=== PATIENT | female | born 1955 | race American Indian/Alaskan Native ===

== ENCOUNTER 2021-02-18 19:02 | Inpatient (IN) | payer SELFPAY ==
[2021-02-18] MEDS ORDERED: dexAMETHasone 4 MG/ML VIAL IV ONE (19:32)
[2021-02-18] MEDS ORDERED: cefTRIAXone/NS 1 GM/50 ML 1 GM/50 ML BAG IV ONE (19:59)
[2021-02-18] MEDS ORDERED: AZITHROMYCIN/NS 500 MG/250 ML 500 MG/250 ML BAG IV ONE (19:59)
--- NOTE | 2021-02-18 19:59 | Emergency Department Report ---
ED Shortness of Breath HPI - General Chief Complaint: Dyspnea/Respdistress Stated Complaint: HYPOXIA/TACHYCARDIA Time Seen by Provider: 02/18/21 19:43 Source: patient, EMS Mode of arrival: Stretcher Limitations: No Limitations - History of Present Illness Initial Comments: Chief complaint shortness of breath low oxygen saturation HPI: This is a 65-year-old female with history of hypertension who was diagnosed with COVID-19 8 days ago. She fell 2 hours ago. She was unable to get up. Family came to check up on. Family member called 9 1. Oxygen saturation 40-50% on room air. Oxygen saturation 90% on 15 L. Patient is not vaccinated against COVID-19. MD Complaint: shortness of breath, cough -: Gradual, days(s) (Diagnosed with COVID-19 8 days ago) Severity: severe Consistency: constant Improves With: nothing Worsens With: nothing Known History Of: other (Recently diagnosed with COVID-19 infection) Context: other (Recent diagnosis COVID-19) Associated Symptoms: cough - Related Data Allergies Allergy/AdvReac Type Severity Reaction Status Date / Time No Known Allergies Allergy Unverified 02/18/21 20:00 ED Review of Systems ROS: Stated complaint: HYPOXIA/TACHYCARDIA Other details as noted in HPI Comment: Unobtainable due to pts medical conditions (Unable to obtain due to critical status severe work of breathing) ED Past Medical Hx - Past Medical History Previous Medical History?: Yes Hx Hypertension: Yes Additional medical history: COVID-23 Feb 2021 - Surgical History Past Surgical History?: No - Social History Smoking Status: Never Smoker Substance Use Type: None ED Physical Exam - General Limitations: No Limitations General appearance: alert, anxious, in distress, other (Tearful severe work of breathing) - Head Head exam: Present: atraumatic, normocephalic - Eye Eye exam: Present: normal appearance - ENT ENT exam: Present: mucous membranes moist - Neck Neck exam: Present: normal inspection, full ROM - Respiratory Respiratory exam: Present: rales, rhonchi, accessory muscle use. Absent: respiratory distress, chest wall tenderness - Cardiovascular Cardiovascular Exam: Present: normal rhythm, tachycardia, normal heart sounds. Absent: systolic murmur, diastolic murmur, rubs, gallop - GI/Abdominal GI/Abdominal exam: Present: soft, normal bowel sounds. Absent: distended, tenderness, guarding, rebound - Extremities Exam Extremities exam: Present: normal inspection - Neurological Exam Neurological exam: Present: alert, oriented X3 - Psychiatric Psychiatric exam: Present: normal mood, anxious - Skin Skin exam: Present: warm, dry, intact, normal color. Absent: rash ED Course Vital Signs 02/18/21 02/18/21 02/18/21 19:20 19:31 19:57 Temperature 100.6 F H Pulse Rate 121 H 117 H Respiratory 43 H 43 H 33 H Rate Blood Pressure 137/104 Blood Pressure 107/82 [Right] O2 Sat by Pulse 75 L 75 L 93 Oximetry ED Medical Decision Making - Lab Data Result diagrams: 02/18/21 19:56 02/18/21 19:56 - EKG Data -: EKG Interpreted by Me EKG shows normal: sinus rhythm, axis Rate: tachycardia - EKG Data 02/18/21 20:20 EKG obtained 2006 EKG inter by me Sinus tachycardia rate 115 bpm normal axis normal QTC no ST elevation ossific T wave pattern - Radiology Data Radiology results: report reviewed Patient Name: ENEIDA GRIGGS Gender: Female Date of : 1955 Referring Provider: ISMA DEVINE Organization: [facility] Accession Number: [id number] Requested Date: February 18, 2021 19:31 Report Status: Final Requested Procedure: 1 Procedure Description: XR chest 1V ap Modality: XR Findings Reporting MD: Brady Carter Dictation Time: February 18, 2021 19:20 Grommet Machine Operator: Not available Recreation Coordinator Date: CHEST 1 VIEW INDICATION: Dyspnea. COMPARISON: None FINDINGS: Support devices: None. Heart: Within normal limits. Lungs/Pleura: The lungs are generally clear. Mild hazy opacity is present in the lower lung zones which could represent mild atelectatic changes. Otherwise the lungs are clear. No pleural effusion or pneumothorax. Additional findings: None. IMPRESSION: Mild bibasilar opacities most likely representing atelectatic changes. Signer Name: Brady Carter Jr, MD Signed: 02/18/2021 7:20 PM Workstation Name: [email or web address] - Medical Decision Making Acute respiratory failure hypoxia multifocal pneumonia recent diagnosis of COVID-19, sepsis presumed secondary bacterial infection, requiring noninvasive positive pressure ventilation FiO2 60% will titrate down according to the PaO2. Work-up notable for Troponin 0.0 82P BNP 2934 white count 28,000 and will need anticoagulation for presumed VTE, suspected pulmonary embolism in the setting. Antibiotics ceftriaxone azithromycin ordered to cover community-acquired pneum onia sepsis admitted in fair condition to IMCU Critical Care Time: Yes Critical care time in (mins) excluding proc time.: 40 Critical care attestation.: If time is entered above; I have spent that time in minutes in the direct care of this critically ill patient, excluding procedure time. 40 minutes of critical care time excluding procedures were used in the care of the patient. I came immediately to the bedside upon patient's arrival. I discussed treatment plan with the nursing team members. I reviewed electronic r ecord. Patient required multiple interventions and reassessments. ED Disposition Clinical Impression: Acute respiratory failure with hypoxia, Sepsis, Multifocal pneumonia, Suspected pulmonary embolism, Acute kidney injury Disposition: ADMITTED INPATIENT Is pt being admited?: Yes Does the pt Need Aspirin: No Condition: Fair Instructions: Bacterial Pneumonia (ED) Referrals: PRIMARY CARE, [Primary Care Provider] - 3-5 Days
--- NOTE | 2021-02-18 20:24 | XRay Report ---
CHEST 1 VIEW INDICATION: Dyspnea. COMPARISON: None FINDINGS: Support devices: None. Heart: Within normal limits. Lungs/Pleura: The lungs are generally clear. Mild hazy opacity is present in the lower lung zones whi ch could represent mild atelectatic changes. Otherwise the lungs are clear. No pleural effusion or pn eumothorax. Additional findings: None. IMPRESSION: Mild bibasilar opacities most likely representing atelectatic changes. Signer Name: Brady Carter Jr, MD Signed: 02/18/2021 8:20 PM Workstation Name: [id number]
[2021-02-18 20:45] LABS: Mean Corpuscular HGB Conc 30 % (30-34); Mean Corpuscular Volume 87 fl (79-97); Red Blood Count 5.18 M/mm3 (3.65-5.03)
[2021-02-18 20:50] LABS: Hematocrit 44.9 % (30.3-42.9); Hemoglobin 13.5 gm/dl (10.1-14.3); Platelet Count 236 K/mm3 (140-440)
[2021-02-18 20:55] LABS: INR 1.29 (0.87-1.13)
[2021-02-18 20:56] LABS: Partial Thromboplastin Time 31.7 Sec. (24.2-36.6)
[2021-02-18 21:01] LABS: Calcium 8.7 mg/dL (8.4-10.2)
[2021-02-18] MEDS ORDERED: SODIUM CHLORIDE 0.9% 1000 ML 1,000 ML IV ONE (21:51)
[2021-02-18] MEDS ORDERED: ACETAMINOPHEN 325 MG TAB PO PRN (22:14)
[2021-02-18] MEDS ORDERED: MORPHINE 2 MG/1 ML INJ IV PRN (22:14)
[2021-02-18] MEDS ORDERED: ALBUTEROL 2.5 MG/3 ML NEBU IH PRN (22:14)
[2021-02-18] MEDS ORDERED: ONDANSETRON 4 MG/2 ML INJ IV PRN (22:14)
[2021-02-18] MEDS ORDERED: HYDROmorphone 1 MG/1 ML INJ IV PRN (22:14)
[2021-02-18 22:20] LABS: ABG Base Excess 1.8 mmol/L (-2.0-3.0); ABG HCO3 23.8 mmol/L (20.0-26.0); ABG Methemoglobin 0.4 % (0.0-1.5); ABG Oxygen Saturation 94.8 % (95.0-99.0); ABG PCO2 29.8 mm Hg; ABG PH 7.521 pH Units (7.350-7.450); ABG PO2 65.7 mm Hg (80.0-90.0)
--- NOTE | 2021-02-18 22:22 | History and Physical Report ---
History of Present Illness Date of examination: 02/18/21 Date of admission: 02/18/21 21:52 Chief complaint: Dyspnea Respiratory distress History of present illness: 65-year-old female with history of hypertension who was diagnosed with COVID-19 8 days ago was brought to the emergency room because of progressive shortness of breath and low oxygen saturation. Patient fell 2 hours ago. Patient was unable to get up. Family came to check up on. Family member called 9 1. Oxygen saturation 40-50% on room air. Oxygen saturation 90% on 15 L. Patient is not vaccinated against COVID-19. In the emergency room patient is found to have lactic acid of 8.70, WBC 28,000 BNP of 2934, troponin 0 0.082. Chest x-ray shows mild bibasilar opacities most likely representing atelectatic changes. So going to put the patient on BiPAP and admit the patient to the IMCU we will consult infectious disease as well as pulmonary for evaluation of respiratory failure coughing 19 Past History Past Medical History: hypertension Medications and Allergies Allergies Allergy/AdvReac Type Severity Reaction Status Date / Time No Known Allergies Allergy Unverified 02/18/21 20:00 Active Meds: Active Medications Acetaminophen (Acetaminophen 325 Mg Tab) 650 mg PO Q4H PRN PRN Reason: Pain MILD(1-3)/Fever >100.5/HOWELL Albuterol (Albuterol 2.5 Mg/3 Ml Nebu) 2.5 mg IH Q4HRT PRN PRN Reason: Shortness Of Breath Albuterol/Ipratropium (Ipratropium/Albuterol Sulfate 3 Ml Ampul.Neb) 1 ampul IH Q6HRT ASHLEY Famotidine (Famotidine 20 Mg Tab) 20 mg PO BID ASHLEY Heparin Sodium (Porcine) (Heparin 5,000 Unit/1 Ml Vial) 5,000 unit SUB-Q Q8HR ASHLEY Hydromorphone HCl (Hydromorphone 1 Mg/1 Ml Inj) 0.5 mg IV Q3H PRN PRN Reason: Pain , Severe (7-10) Sodium Chloride (Nacl 0.9% 1000 Ml) 1,000 mls @ 999 mls/hr IV BOLUS ONE Stop: 02/18/21 22:51 Ceftriaxone Sodium (Rocephin/Ns 2 Gm/100 Ml) 2 gm in 100 mls @ 200 mls/hr IV Q24H ASHLEY; Protocol Azithromycin (Zithromax/Ns) 500 mg in 250 mls @ 250 mls/hr IV Q24H ASHLEY; Protocol Morphine Sulfate (Morphine 2 Mg/1 Ml Inj) 2 mg IV Q4H PRN PRN Reason: Pain, Moderate (4-6) Ondansetron HCl (Ondansetron 4 Mg/2 Ml Inj) 4 mg IV Q8H PRN PRN Reason: Nausea And Vomiting Sodium Chloride (Sodium Chloride 0.9% 10 Ml Flush Syringe) 10 ml IV BID ASHLEY Sodium Chloride (Sodium Chloride 0.9% 10 Ml Flush Syringe) 10 ml IV PRN PRN PRN Reason: LINE FLUSH Review of Systems All systems: negative Constitutional: lethargy Cardiovascular: shortness of breath, dyspnea on exertion Respiratory: cough, shortness of breath, dyspnea on exertion Neurological: change in mentation Exam - Constitutional Vitals: Temp Pulse Resp BP Pulse Ox 100.6 F H 117 H 33 H 137/104 93 02/18/21 19:20 02/18/21 19:57 02/18/21 19:57 02/18/21 19:57 02/18/21 19:57 General appearance: Present: severe distress - EENT Eyes: Present: PERRL ENT: hearing intact, clear oral mucosa - Neck Neck: Present: supple, normal ROM - Respiratory Respiratory effort: normal Respiratory: bilateral: diminished - Cardiovascular Heart Sounds: Present: S1 & S2. Absent: rub, click - Extremities Extremities: pulses symmetrical, No edema Peripheral Pulses: within normal limits - Abdominal General gastrointestinal: Present: soft, non-tender, non-distended, normal bowel sounds Female genitourinary: Present: normal - Integumentary Integumentary: Present: clear, warm, dry - Musculoskeletal Musculoskeletal: gait normal, strength equal bilaterally - Psychiatric Psychiatric: other (Patient is lethargic) - Neurologic Neurologic: CNII-XII intact, moves all extremities, other (Patient is lethargic) HEART Score - HEART Score Troponin: Troponin T 0.082 ng/mL (0.00-0.029) H 02/18/21 19:56 Results - Labs CBC & Chem 7: 02/18/21 19:56 02/18/21 19:56 Labs: Laboratory Last Values WBC 23.6 K/mm3 (4.5-11.0) H 02/18/21 19:56 RBC 5.18 M/mm3 (3.65-5.03) H 02/18/21 19:56 Hgb 13.5 gm/dl (10.1-14.3) 02/18/21 19:56 Hct 44.9 % (30.3-42.9) H 02/18/21 19:56 MCV 87 fl (79-97) 02/18/21 19:56 MCH 26 pg (28-32) L 02/18/21 19:56 MCHC 30 % (30-34) 02/18/21 19:56 RDW 14.0 % (13.2-15.2) 02/18/21 19:56 Plt Count 236 K/mm3 (140-440) 02/18/21 19:56 PT 17.4 Sec. (12.2-14.9) H 02/18/21 19:56 INR 1.29 (0.87-1.13) H 02/18/21 19:56 APTT 31.7 Sec. (24.2-36.6) 02/18/21 19:56 Sodium 144 mmol/L (137-145) 02/18/21 19:56 Potassium 3.8 mmol/L (3.6-5.0) 02/18/21 19:56 Chloride 99.5 mmol/L (98-107) 02/18/21 19:56 Carbon Dioxide 16 mmol/L (22-30) L 02/18/21 19:56 Anion Gap 32 mmol/L 02/18/21 19:56 BUN 34 mg/dL (7-17) H 02/18/21 19:56 Creatinine 1.3 mg/dL (0.6-1.2) H 02/18/21 19:56 Estimated GFR 50 ml/min 02/18/21 19:56 BUN/Creatinine Ratio 26 % 02/18/21 19:56 Glucose 184 mg/dL (65-100) H 02/18/21 19:56 Lactic Acid 8.70 mmol/L (0.7-2.0) H* 02/18/21 19:56 Calcium 8.7 mg/dL (8.4-10.2) 02/18/21 19:56 Magnesium 3.30 mg/dL (1.7-2.3) H 02/18/21 19:56 Total Bilirubin 0.70 mg/dL (0.1-1.2) 02/18/21 19:56 AST 71 units/L (5-40) H 02/18/21 19:56 ALT 40 units/L (7-56) 02/18/21 19:56 Alkaline Phosphatase 120 units/L (35-129) 02/18/21 19:56 Total Creatine Kinase Cancelled 02/18/21 19:56 CK-MB (CK-2) Cancelled 02/18/21 19:56 CK-MB (CK-2) Rel Index Cancelled 02/18/21 19:56 Troponin T 0.082 ng/mL (0.00-0.029) H 02/18/21 19:56 NT-Pro-B Natriuret Pep 2934 pg/mL (0-900) H 02/18/21 19:56 Total Protein 8.0 g/dL (6.3-8.2) 02/18/21 19:56 Albumin 3.0 g/dL (3.9-5) L 02/18/21 19:56 Albumin/Globulin Ratio 0.6 % 02/18/21 19:56 - Imaging and Cardiology Chest x-ray: report reviewed Assessment and Plan VTE prophylaxis?: Chemical Plan of care discussed with patient/family: Yes - Patient Problems (1) Acute respiratory failure with hypoxia Current Visit: Yes Status: Acute Plan to address problem: Admit the patient to the IMCU. Patient is on BiPAP. DuoNeb by nebulizer every 4 hours. Albuterol via nebulizer every 4 hours as needed. Rocephin 2 g IV daily. Zithromax 500 IV daily. Ash dexamethasone 6 mg IV daily we will do the blood culture sputum culture. Will consult infectious disease as well as pulmonary for evaluation. Recheck ABG in the morning (2) COVID-19 Current Visit: Yes Status: Acute Plan to address problem: Patient recently diagnosed with COVID-19. Follow Covid inflammatory marker. Patient is on BiPAP. DuoNeb by nebulizer every 4 hours. Albuterol via nebulizer every 4 hours as needed. Rocephin 2 g IV daily. Zithromax 500 IV daily. Ash dexamethasone 6 mg IV daily we will do the blood culture sputum culture. Will consult infectious disease as well as pulmonary for evaluation. (3) Hypertension Current Visit: Yes Status: Acute Plan to address problem: Hydralazine 10 mg IV every 6 hours as needed. We continue the home medication. We will monitor the blood pressure closely (4) Sepsis Current Visit: Yes Status: Acute Plan to address problem: Rocephin 2 g IV daily. Zithromax 5 mg IV daily. We will do the blood culture and sputum culture. We will recheck the lactic acid in 4 hours. We will consult infectious disease for evaluation. Recheck CBC in the morning (5) Multifocal pneumonia Current Visit: Yes Status: Acute Plan to address problem: Patient is on BiPAP. DuoNeb by nebulizer every 4 hours. Albuterol via nebulizer every 4 hours as needed. Rocephin 2 g IV daily. Zithromax 500 IV daily. Ash dexamethasone 6 mg IV daily we will do the blood culture sputum culture. Will consult infectious disease as well as pulmonary for evaluation. Recheck ABG in the morning (6) CHF (congestive heart failure) Current Visit: Yes Status: Acute Plan to address problem: Patient is on BiPAP. DuoNeb per nebulizer every 4 hours. Fluid restriction. Lasix 40 mg IV daily. Echocardiogram. Consult cardiology if needed (7) DVT prophylaxis Current Visit: Yes Status: Acute Plan to address problem: Heparin 5000 units subcu every 8 hours for DVT prophylaxis. Pepcid 20 mg p.o. twice daily for GI prophylaxis. Patient is a full code
[2021-02-18 22:25] LABS: Total Cells Counted 100
[2021-02-18] MEDS ORDERED: hydrALAZINE 20 MG/1 ML INJ IV PRN (22:27)
[2021-02-18 22:29] LABS: Large Platelets Few; Platelet Estimate Consistent w Auto; RBC Morphology Normal
[2021-02-18] MEDS ORDERED: SODIUM CHLORIDE 0.9% 500 ML 500 ML ONE (23:13)
[2021-02-18] MEDS ORDERED: SODIUM CHLORIDE 0.9% 1000 ML IV SOLN IV STA (23:53)
[2021-02-19] MEDS ORDERED: IPRATROPIUM/ALBUTEROL SULFATE 3 ML AMPUL.NEB IH SCH (02:00)
[2021-02-19 02:13] LABS: Chol/HDL Ratio 4.29 %
[2021-02-19] MEDS ORDERED: IPRATROPIUM/ALBUTEROL SULFATE 3 ML AMPUL.NEB IH ONE (04:56)
[2021-02-19] MEDS ORDERED: ALBUTEROL 8.5 GM MDI INHALATION IH PRN (05:13)
[2021-02-19] MEDS ORDERED: NORepinephrine/NS 8 MG-250 ML 8 MG/250 ML INFUS..BTL IV ONE (05:46)
--- NOTE | 2021-02-19 05:49 | Procedure Note ---
Date of procedure: 02/19/21 - Intubation Time Out Performed: Yes Sedative: Etomidate Mg Given: 20 Paralytic: Succinylcholine Mg Given: 100 Laryngoscope: fiberoptic video scope Size: 3 ET Tube Size: 7.5 Tube Secured Depth (cm): 22 Tube Secured Location: lips Tube Placement Confirmation: visualized tube passing t, equal breath sounds bilat, no breath sounds over epi, confirmation by capnometr Patient Tolerated Procedure: well Intubation Complications: none Additional Comments: Patient found altered and hypoxic. Patient bagged and prepped for intubation. While being prepped for intubation patient became pulseless and CPR initiated. Patient did receive etomidate 20 mg, succinylcholine 100 mg, and was subsequently intubated without difficulty using a glide a scope. Dr. Yoder hospitalist at the bedside continuing resuscitation efforts cxr ordered.
[2021-02-19] MEDS ORDERED: HEPARIN 5,000 UNIT/1 ML VIAL SUB-Q SCH (06:00)
[2021-02-19 06:25] VITALS: BP 253/202
--- NOTE | 2021-02-19 06:36 | Death Note ---
Note Date of : 02/19/21 Time of : 06:06 Time Pronounced: 06:06 - Preliminary Cause of (problem) (1) Acute respiratory failure with hypoxia Preliminary cause of CODE BLUE was called. Patient developed respiratory failure subsequently patient was intubated patient was found PEA subsequently CPR was given as per ACLS protocol. 5 EAP , 2 bicarb 1 atropine 1 calcium gluconate and 300 mg of amiodarone was given also patient was given 1 shock because of V. tach V. fib. But patient failed to regain ROSC patient at 6:06 AM on 02/19/2021 due to cardiopulmonary arrest. Acute respiratory failure.covid 19 infection, sepsi s. Prognosis was poor. Family was informed. (2) COVID-19 Preliminary cause of (3) Hypertension Preliminary cause of (4) Sepsis Preliminary cause of (5) Multifocal pneumonia Preliminary cause of (6) CHF (congestive heart failure) Preliminary cause of (7) DVT prophylaxis Preliminary cause of
[2021-02-19] MEDS ORDERED: NORepinephrine/NS 8 MG-250 ML 8 MG/250 ML INFUS..BTL IV SCH (08:00)
[2021-02-19] MEDS ORDERED: FUROSEMIDE 40 MG/4 ML INJ IV SCH (10:00)
[2021-02-19] MEDS ORDERED: FAMOTIDINE 20 MG TAB PO SCH (10:00)
--- NOTE | 2021-02-19 12:25 | Electrocardiograph Report ---
[facility] Test Date: 2021-02-18 Test Time: 20:07:31 Pat Name: ENEIDA GRIGGS Department: Room: [place] [address] Gender: F Commissary Worker: Rosalia PARKER : 1955 Requested By: ISMA DEVINE Order Number: [id number] Reading MD: Clovis Schmidt Measurements Intervals [place] Rate: 116 P: 66 ID: [id number] QRS: 5 QRSD: 85 T: 10 QT: 375 QTc: 520 Interpretive Statements Sinus tachycardia Prolonged QT interval No previous ECG available for comparison Electronically Signed On 02-19-2021 12:25:05 EST by Clovis Schmidt
[2021-02-19] MEDS ORDERED: AZITHROMYCIN/NS 500 MG/250 ML 500 MG/250 ML BAG IV SCH (23:00)
[2021-02-19] MEDS ORDERED: cefTRIAXone/NS 2 GM/100 ML 2 GM/100 ML BAG IV SCH (23:00)
== END 2021-02-19 06:10 | DRG 871 ==
LOC: ED 19:02 → IMCU 21:52
PROVIDERS: ADMIT Hospitalist; ATTEND Hospitalist
PROC: 5A09357 Assistance with Respiratory Ventilation, Less than 24 Consecutive Hours, Continuous Positive Airway Pressure (ICD-10-PCS; 2021-02-18)
PROC: 5A12012 Performance of Cardiac Output, Single, Manual (ICD-10-PCS; principal; 2021-02-19)
PROC: 0BH17EZ Insertion of Endotracheal Airway into Trachea, Via Natural or Artificial Opening (ICD-10-PCS; 2021-02-19)
DX: A41.9 Sepsis, unspecified organism (principal); U07.1 COVID-19; J96.01 Acute respiratory failure with hypoxia; J12.82 Pneumonia due to coronavirus disease 2019; N17.9 Acute kidney failure, unspecified; I50.9 Heart failure, unspecified; I46.9 Cardiac arrest, cause unspecified
CPT/HCPCS: 36415; 71045; 80053; 80061; 82140; 82803; 82962; 83735; 83880; 84484; 85007; 85025; 85610; 85730; 87040; 93005; 99291; G0378; J2354; Q0162; J0456; J0696; J1100; J7030; J7040